=== PATIENT | female | born 1945 | race Caucasian/White ===

== ENCOUNTER → 2018-08-01 | Outpatient (REF) | payer MEDICARE, OTHER | LOC: M LAB REF 12:43 | PROVIDERS: ATTEND Nurse Practitioner Adult Health | DX: E83.52 Hypercalcemia (principal) ==

== ENCOUNTER → 2020-07-15 | Outpatient (REF) | payer MEDICARE, OTHER | LOC: M LAB REF 12:06 | PROVIDERS: ATTEND Nurse Practitioner Adult Health | DX: E83.52 Hypercalcemia (principal) ==

== ENCOUNTER → 2020-07-20 | Outpatient (REF) | payer MEDICARE, OTHER | LOC: M LAB REF 15:41 | PROVIDERS: ATTEND Nurse Practitioner Adult Health | DX: R19.7 Diarrhea, unspecified (principal) ==

== ENCOUNTER → 2020-09-02 | Outpatient (REF) | payer MEDICARE, OTHER | LOC: M LAB REF 12:18 | PROVIDERS: ATTEND Nurse Practitioner Adult Health | DX: R19.7 Diarrhea, unspecified (principal) ==

== ENCOUNTER → 2021-03-03 | Outpatient (CLI) | payer MEDICARE, OTHER ==
--- NOTE | 2021-03-03 11:09 | REP ---
INDICATION: PAIN AFTER FALL R/O FRACTURE COMPARISON: None. TECHNIQUE: AP and frog-lateral views of the left hip FINDINGS: Moderate arthritic changes include increased sclerosis to the acetabular roof with joint space narrowing and marginal osteophytosis to the acetabulum and femoral head. No acute fracture or dislocation. No obvious periarticular loose bodies identified. IMPRESSION: Moderate arthritic changes. <Electronically signed by Jg Pierce > 03/03/21 [id number]
== END ==
LOC: M WUC 10:33
PROVIDERS: ATTEND Internal Medicine
DX: M16.11 Unilateral primary osteoarthritis, right hip (principal); M25.752 Osteophyte, left hip

== ENCOUNTER → 2021-03-30 | Outpatient (REF) | payer MEDICARE, OTHER ==
[2021-03-30 17:30] LABS: C REACTIVE PROTEIN QUANTITATIV 5.69 MG/DL (0.00-0.30); RHEUMATOID FACTOR QUANT < 10.0 IU/ML (<15.0)
[2021-04-02 00:07] LABS: ANTINUCLEAR ANTIBODIES DIRECT Negative (Negative); CYCLIC CITRULLINATED PEPTIDE 7 units (0-19)
== END ==
LOC: M LAB REF 16:30
PROVIDERS: ATTEND Internal Medicine
DX: M25.50 Pain in unspecified joint (principal)

== ENCOUNTER → 2021-04-06 | Outpatient (CLI) | payer MEDICARE, OTHER ==
--- NOTE | 2021-04-06 17:19 | DEXAMM ---
INDICATION: OSTEOPENIA. COMPARISON: 01/23/2019 as well as other prior exams. TECHNIQUE: Bone density was measured using dual-energy x-ray absorptiometry (DEXA). FINDINGS: AP SPINE L1-L4 BMD 1.077 g/cm2 Young Adult T-Score -0.9 Age Matched Z-Score 0.8. LT FEMUR, TOTAL BMD 0.819 g/cm2 Young Adult T-Score -1.5 Age Matched Z-Score 0.4. LT NECK BMD 0.779 g/cm2 Young Adult T-Score -1.9 Age Matched Z-Score 0.2. IMPRESSION: There is normal bone density of the spine. There is low bone density of the left hip. The density of the spine has decreased 4.2% since the initial exam on 10/22/1999. The density of the spine decreased 3.4% since most recent exam on 01/23/2019. The density of the left hip has decreased 13.1% since initial exam on 10/22/1999. The density of the left hip has decreased 0.7% since most recent exam on 01/23/2019. FOLLOW-UP: Recommendation for the next bone density exam: 2 years. <Electronically signed by Grayson Beavers > 04/06/21 7061
== END ==
LOC: M WHC 12:22
PROVIDERS: ATTEND Nurse Practitioner Adult Health
DX: M85.88 Other specified disorders of bone density and structure, other site (principal); M85.852 Other specified disorders of bone density and structure, left thigh

== ENCOUNTER → 2021-04-19 | Outpatient (REF) | payer MEDICARE, OTHER | LOC: M LAB REF 16:26 | PROVIDERS: ATTEND Nurse Practitioner Adult Health | DX: R79.82 Elevated C-reactive protein (CRP) (principal); H00.11 Chalazion right upper eyelid ==

== ENCOUNTER → 2021-04-28 | Outpatient (REF) | payer MEDICARE, OTHER ==
[2021-04-28 17:27] LABS: BACTERIA, URINE AUTO NEGATIVE (NEGATIVE); MUCUS, URINE SMALL (NEGATIVE); RBC, URINE AUTO 4 /HPF (0-3); SQUAMOUS EPITHELIAL CELL UR AU 0 /HPF (0-6); WBC, URINE AUTO 1 /HPF (0-3)
[2021-04-28 18:25] LABS: C REACTIVE PROTEIN QUANTITATIV 1.14 MG/DL (0.00-0.30); TOTAL PROTEIN 7.4 GM/DL (6.4-8.2)
[2021-04-29 09:53] LABS: ALBUMIN 3.98 GM/DL (3.29-5.55); ALBUMIN % 53.8 % (55.8-66.1); ALPHA-1-GLOBULIN % 6.3 % (2.9-4.9); ALPHA-1-GLOBULINS 0.47 GM/DL (0.17-0.41); ALPHA-2-GLOBULINS 0.96 GM/DL (0.42-0.99); BETA-1-GLOBULINS 0.44 GM/DL (0.28-0.60); BETA-2-GLOBULINS 0.44 GM/DL (0.19-0.55); GAMMA GLOBULIN % 14.9 % (11.1-18.8)
[2021-04-30 14:11] LABS: FREE KAPPA LIGHT CHAINS SERUM 16.6 mg/L (3.3-19.4); FREE LAMBDA LIGHT CHAINS SERUM 19.9 mg/L (5.7-26.3); KAPPA/LAMBDA RATIO SERUM 0.83 (0.26-1.65)
== END ==
LOC: M LAB REF 16:33
PROVIDERS: ATTEND Internal Medicine
DX: R31.9 Hematuria, unspecified (principal); M25.50 Pain in unspecified joint; R63.4 Abnormal weight loss

== ENCOUNTER → 2021-05-05 | Outpatient (REF) | payer MEDICARE, OTHER ==
[2021-05-05 17:09] LABS: C REACTIVE PROTEIN QUANTITATIV 5.2 MG/DL (0.00-0.30)
[2021-05-05 17:17] LABS: CORTISOL AM 15.2 UG/DL (4.3-22.4)
[2021-05-05 17:42] LABS: BACTERIA, URINE AUTO NEGATIVE (NEGATIVE); RBC, URINE AUTO 9 /HPF (0-3); SQUAMOUS EPITHELIAL CELL UR AU 0 /HPF (0-6); WBC, URINE AUTO 1 /HPF (0-3)
== END ==
LOC: M LAB REF 16:22
PROVIDERS: ATTEND Internal Medicine
DX: M79.10 Myalgia, unspecified site (principal); R53.1 Weakness; R63.4 Abnormal weight loss; R31.9 Hematuria, unspecified

== ENCOUNTER → 2021-05-14 | Outpatient (REF) | payer MEDICARE, OTHER | LOC: M LAB REF 16:20 | PROVIDERS: ATTEND Internal Medicine | DX: M35.3 Polymyalgia rheumatica (principal); R31.21 Asymptomatic microscopic hematuria ==

== ENCOUNTER → 2021-06-16 | Outpatient (REF) | payer MEDICARE, OTHER ==
[2021-06-16 18:52] LABS: APPEARANCE, URINE CLEAR (CLEAR); BACTERIA, URINE AUTO NEGATIVE (NEGATIVE); BILIRUBIN, URINE AUTO NEGATIVE (NEGATIVE); BLOOD, URINE BLOOD 1+ (NEGATIVE); COLOR, URINE STRAW (YELLOW); GLUCOSE, URINE (UA) AUTO NEGATIVE (NEGATIVE); KETONE, URINE AUTO NEGATIVE (NEGATIVE); LEUKOCYTE ESTERASE, URINE AUTO NEGATIVE (NEGATIVE); NITRITE, URINE AUTO NEGATIVE (NEGATIVE); PROTEIN, URINE AUTO NEGATIVE (NEGATIVE); RBC, URINE AUTO 0 /HPF (0-3); SPECIFIC GRAVITY URINE AUTO 1.005 (1.002-1.035); SQUAMOUS EPITHELIAL CELL UR AU 0 /HPF (0-6); UROBILINOGEN, URINE AUTO 0.2 mg/dL (0.0-2.0); WBC, URINE AUTO 0 /HPF (0-3)
== END ==
LOC: M SMT 16:48
PROVIDERS: ATTEND Nurse Practitioner Women's Health
DX: R31.29 Other microscopic hematuria (principal)

== ENCOUNTER → 2021-06-25 | Outpatient (REF) | payer MEDICARE, OTHER | LOC: M LAB REF 16:23 | PROVIDERS: ATTEND Nurse Practitioner Adult Health | DX: M35.3 Polymyalgia rheumatica (principal) ==

== ENCOUNTER → 2021-08-26 | Outpatient (REF) | payer MEDICARE, OTHER | LOC: M LAB REF 16:22 | PROVIDERS: ATTEND Nurse Practitioner Adult Health | DX: M35.3 Polymyalgia rheumatica (principal) ==

== ENCOUNTER → 2021-10-12 | Outpatient (REF) | payer MEDICARE, OTHER | LOC: M LAB REF 12:18 | PROVIDERS: ATTEND Nurse Practitioner Adult Health | DX: M35.3 Polymyalgia rheumatica (principal) ==

== ENCOUNTER → 2021-11-11 | Outpatient (REF) | payer MEDICARE, OTHER | LOC: M LAB REF 12:02 | PROVIDERS: ATTEND Nurse Practitioner Adult Health | DX: M35.3 Polymyalgia rheumatica (principal) ==

== ENCOUNTER → 2021-11-25 | Outpatient (REF) | payer MEDICARE, OTHER | LOC: M LAB REF 16:05 | PROVIDERS: ATTEND Nurse Practitioner Adult Health | DX: M35.3 Polymyalgia rheumatica (principal) ==

== ENCOUNTER → 2021-12-29 | Outpatient (CLI) | payer MEDICARE, OTHER | LOC: M WUC 14:28 | PROVIDERS: ATTEND Nurse Practitioner Adult Health | DX: M35.3 Polymyalgia rheumatica (principal); R06.02 Shortness of breath; R91.8 Other nonspecific abnormal finding of lung field ==

== ENCOUNTER 2022-02-04 10:57 | Outpatient (RCR) | payer MEDICARE, OTHER | END 2022-02-14 23:59 | disposition home or self-care (01) | LOC: M PT 10:57 | PROVIDERS: ATTEND Dentist | DX: M26.609 Unspecified temporomandibular joint disorder, unspecified side (principal) ==

== ENCOUNTER 2022-03-02 12:42 | Outpatient (RCR) | payer MEDICARE, OTHER | END 2022-03-16 | LOC: M PT 12:42 | PROVIDERS: ATTEND Dentist | DX: M26.609 Unspecified temporomandibular joint disorder, unspecified side (principal) ==

== ENCOUNTER → 2023-04-07 | Outpatient (CLI) | payer MEDICARE, OTHER | LOC: M WHC 12:26 | PROVIDERS: ATTEND Nurse Practitioner Family | DX: M85.851 Other specified disorders of bone density and structure, right thigh (principal); M85.852 Other specified disorders of bone density and structure, left thigh ==

== ENCOUNTER → 2023-05-18 | Outpatient (CLI) | payer MEDICARE, OTHER ==
[2023-05-18 16:33] LABS: BASO % 0.1 % (0.0-1.0); EOS # 0.2 10^3/uL (0.0-0.5); HEMOGLOBIN 14.6 g/dl (12.0-15.5); LYMPH # 1.4 10^3/uL (1.5-5.0); LYMPH % 16.4 % (24.0-44.0); MEAN CORPUSCULAR HEMOGLOBIN 25.3 pg (27.0-33.0); MEAN CORPUSCULAR HGB CONC 31.1 g/dl (32.0-36.5); MEAN CORPUSCULAR VOLUME 81.6 fl (80.0-96.0); MONO # 0.6 10^3/uL (0.0-0.8); MONO % 6.8 % (2.0-8.0); NEUTROPHILS # 6.4 10^3/uL (1.5-8.5); NEUTROPHILS % 74.1 % (36.0-66.0); PLATELET COUNT, AUTOMATED 265 10^3/uL (150-450); RED BLOOD COUNT 5.76 10^6/uL (4.00-5.40); WHITE BLOOD COUNT 8.6 10^3/uL (4.0-10.0)
[2023-05-18 16:39] LABS: ERYTHROCYTE SEDIMENTATION RATE 33 mm/hr (0-30)
[2023-05-18 16:50] LABS: HEMOGLOBIN A1c 5.5 % (4.0-6.0)
[2023-05-18 16:56] LABS: ALBUMIN 3.8 G/DL (3.2-5.2); ALKALINE PHOSPHATASE 81 U/L (46-116); ALT/SGPT 22 U/L (7.0-40); AST/SGOT 27 U/L (<34); BILIRUBIN,TOTAL 1.1 MG/DL (0.3-1.2); BLOOD UREA NITROGEN 22 MG/DL (9-23); CALCIUM LEVEL 9.8 MG/DL (8.3-10.6); CARBON DIOXIDE LEVEL 31 MMOL/L (20-31); CHLORIDE LEVEL 106 MMOL/L (98-107); CREATININE FOR GFR 0.61 MG/DL (0.55-1.30); GLOMERULAR FILTRATION RATE > 60.0 (>39); GLUCOSE, FASTING 98 MG/DL (74-106); POTASSIUM SERUM 3.7 MMOL/L (3.5-5.1); SODIUM LEVEL 140 MMOL/L (136-145)
[2023-05-18 16:58] LABS: FOLATE > 24.00 NG/ML (>5.4); RHEUMATOID FACTOR QUANT < 3.5 IU/ML (<14); THYROID STIMULATING HORMONE 1.955 uIU/ML (0.55-4.78)
[2023-05-18 16:59] LABS: VITAMIN B12 LEVEL 455 PG/ML (211-911)
== END ==
LOC: M PLALAB 13:29
PROVIDERS: ATTEND Psychiatry & Neurology Neurology
DX: R41.3 Other amnesia (principal); Z79.899 Other long term (current) drug therapy

== ENCOUNTER 2023-09-21 02:25 | Emergency (ER) | payer MEDICARE, OTHER ==
[~2023-09-21] VITALS: Ht 154.9 cm; Wt 54.9 kg
[2023-09-21] MEDS: DERMABOND TOPICAL SKIN ADHESIVE TOP ONE (07:05)
[2023-09-21] MEDS ORDERED: HYDR12.55 (07:36)
[2023-09-21] MEDS ORDERED: BIMA0.036 (07:36)
[2023-09-21] MEDS ORDERED: ATEN25TA (07:36)
[2023-09-21] MEDS ORDERED: TIMO0.5S20 (07:36)
[2023-09-21] MEDS: BOOSTRIX VACCINE (TETANUS/DIPHTH/ACEL. PERTUSSIS) 0.5ML SYR IM ONE (07:42)
[2023-09-21 07:58] VITALS: BP 158/88; TEMP 96.7; O2SAT 98
== END 2023-09-21 08:02 | disposition home or self-care (01) ==
LOC: M ED 02:25
DX: S51.012A Laceration without foreign body of left elbow, initial encounter (principal); M54.50 Low back pain, unspecified; M79.642 Pain in left hand; W01.0XXA Fall on same level from slipping, tripping and stumbling without subsequent striking against object, initial encounter; M19.022 Primary osteoarthritis, left elbow; M85.89 Other specified disorders of bone density and structure, multiple sites; M51.37 Other intervertebral disc degeneration, lumbosacral region; Y92.009 Unspecified place in unspecified non-institutional (private) residence as the place of occurrence of the external cause; Y93.89 Activity, other specified; Y99.9 Unspecified external cause status; Z88.0 Allergy status to penicillin; Z88.1 Allergy status to other antibiotic agents; Z79.899 Other long term (current) drug therapy; Z23 Encounter for immunization

== ENCOUNTER → 2024-05-27 | Outpatient (CLI) | payer MEDICARE, OTHER ==
[~2024-05-27] MED LIST: ATEN25TA; BIMA0.036; HYDR12.55; TIMO0.5S20
== END ==
LOC: M RAD 08:03
PROVIDERS: ATTEND Orthopaedic Surgery
DX: S32.020A Wedge compression fracture of second lumbar vertebra, initial encounter for closed fracture (principal); X58.XXXA Exposure to other specified factors, initial encounter; Y92.9 Unspecified place or not applicable
CPT/HCPCS: 78315; A9503